=== PATIENT | female | born 1950 | race Caucasian/White ===

== ENCOUNTER 2019-11-09 13:55 | Emergency (ER) | payer MEDICARE, OTHER ==
--- NOTE | 2019-11-09 14:58 | EDM.PDOC ---
ED HPI GENERAL MEDICAL PROBLEM - General Chief Complaint: Laceration Stated Complaint: R THUMB INJURY Time Seen by Provider: 11/09/19 14:35 Source of Information: Reports: Patient History Limitations: Reports: No Limitations - History of Present Illness INITIAL COMMENTS - FREE TEXT/NARRATIVE: 68-year-old female with a right thumb laceration. The wound is 24 hours old, it is an avulsion of superficial skin on the radial aspect of the thumb right hand. This was done with a sharp clean blade. Initially bleeding was controlled so no care was sought, but today she bumped her thumb and notes bleeding again and will not stop. She is not on anticoagulants, and has no other complaints. Onset: Sudden Duration: Hour(s): (24 hours ago) Location: Reports: Upper Extremity, Right Associated Symptoms: Reports: No Other Symptoms Right Finger-Thumb Pain Score (Numeric/FACES): 3 - Related Data Allergies Allergy/AdvReac Type Severity Reaction Status Date / Time No Known Allergies Allergy Verified 11/09/19 14:22 Home Meds: Home Meds Calcium Carbonate [Calcium] 600 mg PO DAILY 11/09/19 [History] Mirtazapine [Remeron] 15 mg PO BEDTIME 11/09/19 [History] Multivitamin [Multi-Vitamin Daily] 1 tab PO DAILY 11/09/19 [History] Past Medical History HEENT History: Reports: Impaired Vision Psychiatric History: Reports: Depression - Past Surgical History Musculoskeletal Surgical History: Reports: Hip Replacement Social & Family History - Tobacco Use Smoking Status *Q: Never Smoker - Caffeine Use Caffeine Use: Reports: Coffee - Alcohol Use Days Per Week of Alcohol Use: 7 Number of Drinks Per Day: 1 Total Drinks Per Week: 7 - Recreational Drug Use Recreational Drug Use: No ED ROS GENERAL - Review of Systems Review Of Systems: See Below Constitutional: Denies: Fever, Chills Respiratory: Denies: Shortness of Breath Cardiovascular: Denies: Chest Pain GI/Abdominal: Denies: Abdominal Pain, Nausea, Vomiting Psychiatric: Reports: No Symptoms ED EXAM, SKIN/RASH Exam: See Below Exam Limited By: No Limitations General Appearance: Alert, No Apparent Distress Head: Atraumatic Respiratory/Chest: No Respiratory Distress Extremities: Other (Right thumb shows a 1 x 2 cm shallow evulsion of superficial skin into the subcutaneous tissue on the radial aspect of the thumb which is persistently oozing.) Neurological: Alert, Oriented Course - Vital Signs Last Recorded V/S: Last Vital Signs Temp 97.5 F 11/09/19 14:27 Pulse 59 L 11/09/19 14:27 Resp 13 11/09/19 14:27 BP 138/68 11/09/19 14:27 Pulse Ox 98 11/09/19 14:27 - Re-Assessments/Exams Free Text/Narrative Re-Assessment/Exam: 11/09/19 14:58 After sterilization, a small amount of 1% lidocaine with epinephrine was infiltrated into the wound which slowed the bleeding significantly. Cautery was then used to stop the small bleeders. 11/09/19 15:17 Bleeding was controlled for the next 20 minutes so a Band-Aid was applied. She should keep the wound covered while healing, and to return if concerns such as infection or not healing satisfactorily. Departure - Departure Time of Disposition: 15:37 Disposition: Home, Self-Care 01 Clinical Impression: Laceration of thumb Qualifiers: Encounter type: initial encounter Damage to nail status: without damage Foreign body presence: without foreign body Laterality: right Qualified Code(s): S61.011A - Laceration without foreign body of right thumb without damage to nail, initial encounter - Discharge Information Instructions: Laceration Care, Adult Referrals: PCP,None [Primary Care Provider] - Forms: ED Department Discharge Care Plan Goals: Keep wound covered and clean while healing, and recheck if concerns of infection or not healing satisfactorily. Direct pressure should stop bleeding, if persistent try a brief tourniquet to slow down bleeding or return for more treatment. Sepsis Event Note (ED) - Evaluation Sepsis Screening Result: No Definite Risk
== END 2019-11-09 15:37 | disposition home or self-care (01) ==
LOC: JP.ED 13:55
DX: S61.011A Laceration without foreign body of right thumb without damage to nail, initial encounter (principal); F32.9 Major depressive disorder, single episode, unspecified; Z79.899 Other long term (current) drug therapy; W26.8XXA Contact with other sharp object(s), not elsewhere classified, initial encounter
CPT/HCPCS: 12001; 99282